=== PATIENT | female | born 1955 | race Two or more races ===

== ENCOUNTER 2016-09-28 07:14 | Day surgery (SDC) | payer OTHER ==
[~2016-09-28 07:14] MED LIST: FENTANYL 250 MCG/5 ML AMP IV PRN; LACTATED RINGERS 1,000 ML IV SCH; MIDAZOLAM HCL 5 MG/5 ML VIAL IV PRN
[2016-09-28] MEDS ORDERED: IV START KIT ONE (07:17)
[2016-09-28] MEDS ORDERED: PROPOFOL 20 ML IV ONE (08:29)
[2016-09-28] MEDS ORDERED: MIDAZOLAM HCL 1 MG/ML 2ML VIAL ONE (08:43)
== END 2016-09-28 09:56 | disposition home or self-care (01) ==
LOC: SDC 07:14
PROVIDERS: ATTEND Internal Medicine Gastroenterology
PROC: 0DJD8ZZ Inspection of Lower Intestinal Tract, Via Natural or Artificial Opening Endoscopic (ICD-10-PCS; principal; 2016-09-28)
DX: Z12.11 Encounter for screening for malignant neoplasm of colon (principal)
CPT/HCPCS: 45378; J2250; J7120